=== PATIENT | male | born 1985 | race African-American/Black ===

== ENCOUNTER 2022-10-26 13:04 | Emergency (ER) | payer MEDICAID ==
[~2022-10-26] VITALS: Ht 182.9 cm; Wt 73.0 kg
[2022-10-26 13:33] VITALS: O2SAT 99
[2022-10-26 18:55] LABS: BASOPHILS % 0.2 % (0.0-2.0); EOSINOPHILS % 1.1 % (0.0-5.0); HEMATOCRIT. 46.2 % (42.0-52.0); LYMPHOCYTES % 7.3 % (20.0-50.0); MEAN CORPUSCULAR HEMOGLOBIN 29.4 pg (28.0-32.0); MEAN CORPUSCULAR HGB CONC 34.8 g/dL (31.0-37.0); MEAN CORPUSCULAR VOLUME 84.5 fL (80.0-94.0); MEAN PLATELET VOLUME 7.9 fl (7.4-10.4); MONOCYTES % 7.2 % (2.0-8.0); NEUTROPHILS % 84.2 % (40.0-76.0); PLATELET 261 x1000/uL (130-400); RED BLOOD CELL COUNT 5.46 mill/uL (4.7-6.1); RED CELL DISTRIBUTION WIDTH 13.3 % (11.6-14.6); WHITE BLOOD COUNT 15.7 x1000/uL (4.5-11.0)
[2022-10-26 19:01] LABS: CHLORIDE 105 mEq/L (98-107); INDEX HEMOLYSI 1 (1-3); INDEX ICTERIC 1 (1-4); INDEX LIPEMIC 1 (1-3); POTASSIUM 3.7 mEq/L (3.5-5.1); SODIUM 138 mEq/L (136-145)
[2022-10-26 19:05] LABS: PARTIAL THROMBOPLASTIN TIME 32.8 sec (23.4-31.0); PROTHROMBIN TIME 11.1 sec (9.6-11.0)
[2022-10-26 19:09] LABS: ALANINE AMINOTRANSFERASE 20 IU/L (13-61); ALBUMIN 3.9 g/dL (3.4-5.0); ASPARTATE AMINOTRANSFERASE 14 IU/L (15-37); BILIRUBIN TOTAL 0.4 mg/dL (0.1-1.0); CARBON DIOXIDE 30 mEq/L (21-32); GLUCOSE 125 mg/dL (70-105); PROTEIN TOTAL 8.2 g/dL (6.0-8.3); UREA NITROGEN BLOOD 12 mg/dL (7-21)
[2022-10-26] MEDS ORDERED: PIPERACILLIN/TAZOBACTAM 3.375GM/50ML PREMIX IV ONE (20:45)
[2022-10-26] MEDS ORDERED: PIPERACILLIN/TAZ 3.375G PREMIX 50 ML IV NR (21:00)
[2022-10-26] MEDS ORDERED: IOHEXOL-300 100 ML BOTTLE ONE (21:14)
[2022-10-26] MEDS ORDERED: BACITRACIN ZINC OINT UDPKT TOP ONE (21:15)
[2022-10-26] MEDS ORDERED: LIDOCAINE HCL 1% 20ML VIAL (Pyxis) INJ INFIL ONE (21:15)
[2022-10-26] MEDS ORDERED: AMOX1TAB16 MT (21:19)
[2022-10-26] MEDS ORDERED: MORPHINE SULFATE 4 MG/ML CPJ (NOT FOR IM USE) IV ONE (21:30)
[2022-10-26] MEDS ORDERED: VANCOMYCIN 1.5GM/250ML IVPB 250 ML IV NR (22:00)
[2022-10-26 23:30] VITALS: BP 118/76; PULSE 88; RESP 14; TEMP 98.6
[2022-10-27] MEDS ORDERED: VANCOMYCIN 750MG PREMIX 150 ML IV SCH (06:00)
== END 2022-10-27 00:11 | disposition home or self-care (01) ==
LOC: ER 13:48
DX: K61.0 Anal abscess (principal)
CPT/HCPCS: 80053; 83605; 85025; 85610; 85730; 87040; 36415; 74177; 10060; 96367; 96365; 96375; 99285; Q9967; J3370; J3490; J2543; J2270; Z7610 ×2; C1893